=== PATIENT | male | born 1960 | race Caucasian/White ===

== ENCOUNTER 2017-09-25 09:56 | Emergency (ER) | payer BC ==
[2017-09-25 10:35] LABS: #Basophils 0.1 thou/uL (0.0-0.2); #Eosinphils 0.1 thou/uL (0.0-0.7); #Lymphocytes 1.5 thou/uL (1.20-3.40); #Monocytes 0.8 thou/uL (0.11-0.59); #Neutrophils 5.3 thou/uL (1.40-6.50); %Basophils 1.3 % (0.0-1.0); %Eosinophils 0.8 % (0.0-10.0); Hemoglobin 14.1 g/dL (14.0-18.0); Mean Corpuscular HGB CONC 35.5 g/dL (32.0-36.0); Mean Corpuscular Hemoglobin 32.6 pg (27.0-31.0); Mean Corpuscular Volume 91.8 fl (80.0-94.0); Mean Platelet Volume 6.4 fL (7.4-10.4); Platelet Count 286 thou/uL (130-400); RBC Distribution Width 10.1 % (11.5-14.5); Red Blood Cell (RBC) Count 4.34 mill/uL (4.70-6.10); White Blood Cell (WBC) Count 7.7 thou/uL (4.8-10.8)
[2017-09-25 10:47] LABS: ALT (SGPT) 18 U/L (8-55); AST (SGOT) 19 U/L (5-34); Albumin 3.9 g/dL (3.5-5.0); Alkaline Phosphatase 81 U/L (40-150); Anion Gap 14 mmol/L (10-20); BUN (Urea Nitrogen) 14 mg/dL (8.4-25.7); Bilirubin, Total 0.6 mg/dL (0.2-1.2); Calc. Creatinine Clearance 0 mL/min (70-130); Calcium 9.5 mg/dL (7.8-10.44); Carbon Dioxide 24 mmol/L (22-29); Chloride 103 mmol/L (98-107); Estimated GFR-MDRD 67; Globulin 3.4 g/dL (2.4-3.5); Glucose 139 mg/dL (70-105); Potassium 3.9 mmol/L (3.5-5.1); Protein, Total 7.3 g/dL (6.0-8.3); Sodium 137 mmol/L (136-145)
[2017-09-25 10:50] LABS: CKMB 1.4 ng/mL (0-6.6); Troponin I Less than 0.010 ng/mL (< 0.028)
--- NOTE | 2017-09-25 11:04 | RAD ---
PA AND LATERAL VIEWS CHEST: HISTORY: Cough. FINDINGS: Comparison is made with the exam of 09/06/12. The heart size is normal. The lungs are expanded without focal areas of consolidation, pneumothorax, or pleural effusions. Chronic changes are again seen. No acute osseous abnormalities are identifie d. IMPRESSION: No radiographic evidence of acute cardiopulmonary process. POS: [facility]
--- NOTE | 2017-09-25 12:00 | CT ---
CT PULMONARY ANGIOGRAM WITH IV CONTRAST AND 3D POSTPROCESSING: HISTORY: Cough and tachycardia. FINDINGS/: The pulmonary arterial vasculature is well opacified without filling defects to suggest pulmonary emb olism. The thoracic aorta is well opacified without aneurysm or dissection. No pleural or pericardi al effusions are seen. No pneumothoraces are identified. There are mild infiltrates in the lung bas es with peribronchial thickening and bronchial atelectasis in the lower lobes (left greater than righ t). There are degenerative changes in the spine. IMPRESSION: No evidence of PE POS: [facility]
== END 2017-09-25 12:50 | disposition home or self-care (01) ==
LOC: SCSER 09:56
DX: J18.9 Pneumonia, unspecified organism (principal); K21.9 Gastro-esophageal reflux disease without esophagitis; E11.9 Type 2 diabetes mellitus without complications; E78.5 Hyperlipidemia, unspecified; I10 Essential (primary) hypertension; Z79.899 Other long term (current) drug therapy
CPT/HCPCS: 71020; 71275; 80053; 82553; 84484; 85025; 85379; 93005

== ENCOUNTER 2018-09-08 18:21 | Emergency (ER) | payer BC ==
[2018-09-08] MEDS ORDERED: Ketorolac Tromethamine 30 MG/ML VIAL ONE (18:34)
[2018-09-08 18:48] LABS: #Basophils 0.1 thou/uL (0.0-0.2); #Eosinphils 0.1 thou/uL (0.0-0.7); #Lymphocytes 1.9 thou/uL (1.20-3.40); #Monocytes 0.8 thou/uL (0.11-0.59); #Neutrophils 7.8 thou/uL (1.40-6.50); %Basophils 0.8 % (0.0-1.0); %Lymphocytes 17.7 % (21.0-51.0); %Monocytes 7.2 % (0.0-10.0); %Neutrophils 73.3 % (42.0-75.0); Hemoglobin 16.4 g/dL (14.0-18.0); Mean Corpuscular HGB CONC 34.8 g/dL (32.0-36.0); Mean Corpuscular Hemoglobin 32.5 pg (27.0-31.0); Mean Corpuscular Volume 93.4 fL (78.0-98.0); Mean Platelet Volume 6.9 fL (7.4-10.4); Platelet Count 285 thou/uL (130-400); RBC Distribution Width 11.1 % (11.5-14.5); Red Blood Cell (RBC) Count 5.04 mill/uL (4.70-6.10); White Blood Cell (WBC) Count 10.6 thou/uL (4.8-10.8)
[2018-09-08] MEDS ORDERED: KETAMINE 100 MG/ML (5ML VIAL) ONE (18:57)
[2018-09-08 19:12] LABS: ALT (SGPT) 18 U/L (8-55); AST (SGOT) 17 U/L (5-34); Albumin 4.5 g/dL (3.5-5.0); Alkaline Phosphatase 90 U/L (40-150); Anion Gap 12 mmol/L (10-20); BUN (Urea Nitrogen) 21 mg/dL (8.4-25.7); Bilirubin, Total 0.5 mg/dL (0.2-1.2); Calc. Creatinine Clearance 0 mL/min (70-130); Calcium 9.6 mg/dL (7.8-10.44); Carbon Dioxide 26 mmol/L (22-29); Chloride 105 mmol/L (98-107); Estimated GFR-MDRD 58; Globulin 2.9 g/dL (2.4-3.5); Glucose 126 mg/dL (70-105); Lipase 68 U/L (8-78); Potassium 3.9 mmol/L (3.5-5.1); Protein, Total 7.4 g/dL (6.0-8.3); Sodium 139 mmol/L (136-145)
--- NOTE | 2018-09-08 20:03 | CT ---
CT ABDOMEN AND PELVIS WITHOUT IV CONTRAST: 09/08/18 Multiple axial tomograms obtained through the abdomen and pelvis without IV enhancement. INDICATIONS: Right abdominal pain and CVA tenderness. COMPARISON: CT abdomen and pelvis 04/29/15. FINDINGS: Liver, spleen, pancreas and adrenal glands are unremarkable. Mild right hydronephrosis. There is an obstructing 4 mm calculus in the proximal right ureter. There are numerous nonobstructing calculi in the upper collecting structures of both kidneys measuring in t he 2 to 3 mm range. There is bilateral perinephric stranding, more prominent on the right. Small bowel loops are normal caliber. Appendix is normal. Diverticulosis of the sigmoid and left colo n again noted. Aorta is normal caliber. IMPRESSION: 1. 4 mm obstructing calculus in the mid right ureter. 2. Numerous nonobstructing small calculi in the upper collecting structures of both kidneys. 3. Bilateral perinephric stranding probably more prominent on the right. POS: [facility]
[2018-09-08 20:10] LABS: Bilirubin Negative (Negative); Blood, Urine Large (Negative); Clarity TURBID (Clear); Leukocyte Small (Negative); Nitrite Negative (Negative); Protein, Urine (Dipstick) 30 mg/dL (Neg-Trace); Specific Gravity, Urine 1.017 (1.002-1.036)
[2018-09-08 20:11] LABS: Bacteria/HPF None Seen HPF (None Seen); Hyaline Casts/LPF 0-3 HYALINE CAST LPF (0-3 Hyaline); Pathc Cast-AUWi Flag 0.35 (0-2.49); RBC/HPF GREATER THAN 50-TNTC HPF (0-3); Squamous Epithelial 0-3 HPF (0-3)
[2018-09-08 20:13] LABS: Glucose, Urine (Dipstick) 100 mg/dL (Negative)
[2018-09-08] MEDS ORDERED: Ondansetron ODT 4 MG TAB ONE (20:28)
== END 2018-09-08 23:53 | disposition home or self-care (01) ==
LOC: ERS 18:21
DX: N13.2 Hydronephrosis with renal and ureteral calculous obstruction (principal); K21.9 Gastro-esophageal reflux disease without esophagitis; E78.5 Hyperlipidemia, unspecified; I10 Essential (primary) hypertension; E11.9 Type 2 diabetes mellitus without complications; Z79.899 Other long term (current) drug therapy
CPT/HCPCS: 36415; 74176; 80053; 81003; 81015; 83690; 85025; 96361; 96374; 96375; J1885; Q0162

== ENCOUNTER 2018-09-10 17:13 | Inpatient (IN) | payer BC ==
[2018-09-10] MEDS ORDERED: Ondansetron PF 4 MG/2 ML Vial ONE (17:54)
[2018-09-10] MEDS ORDERED: Morphine 4 MG/ML Carpuject ONE (17:54)
[2018-09-10 17:58] LABS: #Basophils 0.1 thou/uL (0.0-0.2); #Eosinphils 0.1 thou/uL (0.0-0.7); #Lymphocytes 1.5 thou/uL (1.20-3.40); #Monocytes 0.8 thou/uL (0.11-0.59); #Neutrophils 12.2 thou/uL (1.40-6.50); %Basophils 0.5 % (0.0-1.0); %Eosinophils 0.5 % (0.0-10.0); %Lymphocytes 10.5 % (21.0-51.0); %Monocytes 5.6 % (0.0-10.0); %Neutrophils 82.9 % (42.0-75.0); Hemoglobin 15.1 g/dL (14.0-18.0); Mean Corpuscular HGB CONC 35.5 g/dL (32.0-36.0); Mean Corpuscular Hemoglobin 31.4 pg (27.0-31.0); Mean Corpuscular Volume 88.7 fL (78.0-98.0); Mean Platelet Volume 7.8 fL (7.4-10.4); Platelet Count 203 thou/uL (130-400); RBC Distribution Width 10.3 % (11.5-14.5); Red Blood Cell (RBC) Count 4.79 mill/uL (4.70-6.10); White Blood Cell (WBC) Count 14.7 thou/uL (4.8-10.8)
[2018-09-10 18:07] LABS: ALT (SGPT) 15 U/L (8-55); AST (SGOT) 16 U/L (5-34); Albumin 4.1 g/dL (3.5-5.0); Alkaline Phosphatase 91 U/L (40-150); Anion Gap 13 mmol/L (10-20); BUN (Urea Nitrogen) 31 mg/dL (8.4-25.7); Bilirubin, Total 0.4 mg/dL (0.2-1.2); Calc. Creatinine Clearance 0 mL/min (70-130); Calcium 9.3 mg/dL (7.8-10.44); Carbon Dioxide 25 mmol/L (22-29); Estimated GFR-MDRD 37; Globulin 2.8 g/dL (2.4-3.5); Glucose 171 mg/dL (70-105); Potassium 4.6 mmol/L (3.5-5.1); Protein, Total 6.9 g/dL (6.0-8.3); Sodium 138 mmol/L (136-145)
[2018-09-10 18:14] LABS: Chloride 105 mmol/L (98-107)
[2018-09-10 18:16] LABS: Bilirubin Negative (Negative); Blood, Urine Large (Negative); Clarity Hazy (Clear); Glucose, Urine (Dipstick) 250 mg/dL (Negative); Leukocyte Negative (Negative); Nitrite Negative (Negative); Protein, Urine (Dipstick) Negative (Neg-Trace)
[2018-09-10 18:19] LABS: Bacteria/HPF Rare-Few HPF (None Seen); Squamous Epithelial None Seen HPF (0-3); WBC/HPF None Seen HPF (0-3)
[2018-09-10] MEDS ORDERED: Ketorolac Tromethamine 30 MG/ML VIAL ONE (18:22)
[2018-09-10] MEDS ORDERED: Fentanyl 100 MCG/2 ML VIAL ONE (18:22)
--- NOTE | 2018-09-10 18:28 | CT ---
CT ABDOMEN AND PELVIS WITHOUT CONTRAST: Technique: Multiple contiguous axial images were obtained through the abdomen and pelvis without IV e nhancement. Indications: Right flank and right lower quadrant pain. CT from 09-08-18 demonstrated a 4 mm calculus in the mid right ureter producing obstructive change. FINDINGS: Lung bases remain clear. Liver, spleen, and pancreas and adrenal glands remain unremarkable. There continues to be moderate right hydronephrosis. There is dilatation of the right ureter. The pre viously noted calculus in the right ureter has migrated more distally and now resides in the distal r ight ureter. There is right perinephric stranding. Nonobstructing calculi in the upper collecting structures of both kidneys again noted and unchanged i n appearance. Bowel loops and appendix remain unremarkable. There is diverticulosis which was described previously. No other interval change. IMPRESSION: 4 mm calculus noted on the recent CT now resides in the more distal right ureter. It continues to pro duce moderate obstructive change. No other interval change. POS: [facility]
[2018-09-10] MEDS ORDERED: Ondansetron PF 4 MG/2 ML Vial IVP PRN (20:14)
[2018-09-10] MEDS ORDERED: Acetaminophen 325 MG TAB PO PRN (20:14)
[2018-09-10] MEDS ORDERED: Ondansetron ODT 4 MG TAB SL PRN (20:14)
[2018-09-10 20:36] VITALS: BMI 26.2
[2018-09-10] MEDS: Sodium Chloride 0.9% 1,000 ML IV SCH (20:57)
[2018-09-10] MEDS ORDERED: Famotidine 20 MG TAB PO SCH ×2 (21:00→22:00)
[2018-09-10] MEDS ORDERED: Tamsulosin HCl 0.4 MG CAP PO SCH (21:30)
[2018-09-10] MEDS: traMADol HCl 50 MG TAB PO PRN (22:04)
[2018-09-10] MEDS: Heparin 5,000 UNITS/ML VIAL SC SCH (22:06)
--- NOTE | 2018-09-11 01:04 | HP ---
PRIMARY CARE PHYSICIAN: Dr. Daniel Alcantar. CHIEF COMPLAINT: Right-sided abdominal pain. HISTORY OF PRESENT ILLNESS: Mr. Momin is a pleasant 58-year-old male with past medical history of hypertension, hyperlipidemia, diabetes mellitus, kidney stones, GERD, status post gastric sleeve surgery in 2012, who had presented to [facility] as a direct admit from [facility] ER for a right ureteral stone, which measures 4 mm. The patient was recently seen in [facility] ER on Tuesday for similar symptoms. He was treated with IV Toradol, IV ketamine, and 1 L of normal saline. He underwent CT of abdomen, which found a 4-mm stone in his right mid ureter with hydroureter and hydronephrosis on the right. He was stabilized in the ER and later sent home with outpatient followup. He states over the weekend, his pain seemed to be improving. However, around 4:00 this afternoon, he states his pain was sharp, 8/10 pain in the right lower quadrant. He had taken himself to the [facility] ER. Repeat CT displayed a 4-mm stone in the distal ureter; however, his urinalysis showed no signs of infection. White count was slightly elevated at 14.7, and he remained afebrile. Lab work indicated acute kidney injury with a creatinine of 1.89, estimated GFR of 37. He was started on IV fluid of normal saline. He was transferred to the floor for further workup and management of symptoms. He was seen and examined with his daughter at bedside. He had denied any chest pain or shortness of breath. He did complain of [id number] right-sided abdominal pain in the right lower quadrant. He had denied any nausea, vomiting, or diarrhea. He had no further symptoms at that time. He had denied any flank pain. He reported passing a kidney stone about 2 weeks ago prior to these symptoms starting on Tuesday. PAST MEDICAL HISTORY: Hypertension, hyperlipidemia, diabetes mellitus type 2, GERD, and frequent kidney stones. PAST SURGICAL HISTORY: Gastric sleeve in 2012, left shoulder surgery for bone spur, carpal tunnel surgery bilaterally, left inguinal hernia repair, cervical spine fusion, tonsillectomy, and vasectomy. PSYCHIATRIC HISTORY: No previous psychiatric history noted. SOCIAL HISTORY: He states he drinks 1 to 2 drinks socially every week. He denies any drug use or tobacco use. KNOWN ALLERGIES: Morphine, penicillins, and adhesive. HOME MEDICATIONS: 1. Multivitamin p.o. b.i.d. 2. Tamsulosin 0.4 mg p.o. daily. 3. Omeprazole 20 mg p.o. daily. 4. Dextroamphetamine/amphetamine 20 mg p.o. b.i.d. 5. Cetirizine 10 mg p.o. daily. 6. Vitamin B complex one tablet p.o. daily. 7. Celebrex 200 mg p.o. b.i.d. 8. Zonisamide 50 mg two capsules p.o. t.i.d. REVIEW OF SYSTEMS: Positive for right lower quadrant pain, but denies all other review of systems unless noted in the HPI. PHYSICAL EXAMINATION: VITAL SIGNS: Blood pressure 148/92, pulse 91, respirations 18, temperature 97.7 degrees Fahrenheit, and O2 saturation 97% on room air. GENERAL: The patient is alert and oriented x3, sitting up at bedside, mild acute distress noted due to pain. HEENT: Head is atraumatic, normocephalic. Pupils are round and reactive to light. Extraocular muscles intact. Ears, nose, and throat exam normal. No drainage. Oropharynx clear without any erythema or exudates. Uvula midline. Tonsils are absent. Neck: Soft, supple. No tenderness, no JVD, no bruit noted. CARDIOVASCULAR: Positive S1 and S2. Regular rate and rhythm. No murmur noted. PULMONARY: Clear to auscultation bilaterally. No wheezes, no rhonchi. Chest expansion equal. ABDOMEN: Soft. Cmer-us-wluufgke tenderness on the right side; however, no rebound, no guarding. No Julien sign. No pain at McBurney's point. No obturator sign. GENITOURINARY: No CVA tenderness. No suprapubic tenderness. MUSCULOSKELETAL: No edema noted. No clubbing. Strength 5+ in bilateral upper and lower extremities. Pedal and radial pulses palpable. NEUROLOGIC: Cranial nerves 2 through 12 intact. No focal deficits noted. Speech and hearing intact and normal. Gait not tested. PSYCHIATRIC: Good mood and affect. No homicidal or suicidal ideation noted. SKIN: No rash. No lesions. No bruising noted. LABORATORY DATA: WBC 14.7, RBC 4.79, hemoglobin 15.1, platelets 203, and neutrophils 12.2. Sodium 138, potassium 4.6, creatinine 1.89, estimated GFR 37, glucose 171. AST 16, ALT 15, and alkaline phosphatase 91. Urinalysis showed 250 glucose, large blood, negative bilirubin, 11 to 20 rbc's, no wbc's, and no urine bacteria. DIAGNOSTIC IMAGING: CT of abdomen and pelvis without contrast on protocol displayed a 4-mm calculus noted on a recent CT that were in the more distal right ureter and continues to produce moderate obstructive changes. No interval change. ASSESSMENT AND PLAN: 1. Ureteral stone, continue on Flomax, give the patient a strainer to strain urine, monitor CBC and BMP. Continue tramadol 50 mg as needed. Continue on IV fluid with normal saline. 2. Acute kidney injury, continue on IV fluids, hold all nephrotoxic medications. Recheck BMP in a.m. 3. History of diabetes mellitus, Accu-Chek daily, place on mild insulin sliding scale. Further changes pending the patient's progress. 4. Hypertension. Start on IV hydralazine as needed for systolic blood pressure greater than 170. 5. Deep venous thrombosis prophylaxis with heparin subcu twice daily. 6. Gastrointestinal prophylaxis with Pepcid twice daily and Zofran as needed for nausea. 7. Code status, full code. Disposition and further medical management pending the patient's progress and clinical findings. The patient will be observed overnight and likely discharge tomorrow if he is doing well. If he is unable to pass the stone, further consult to Urology Services will be made for further management. Job ID: [id number]
[2018-09-11] MEDS ORDERED: Sodium Chloride 0.9% 1,000 ML IV SCH (05:02)
--- NOTE | 2018-09-11 05:08 | PDOC.EVN ---
Event Note - Event Note Event Note: Discussed with PA. Agrees with assessment and plan except: Add ROS: positive for Right sided abdominal pain otherwise all systems reviewed and are negative. Family history: reviewed and non-contributory to this visit.
[2018-09-11] MEDS: Sodium Chloride 0.9% 1,000 ML IV SCH ×3 (06:15→18:26)
[2018-09-11 07:19] LABS: #Eosinphils 0.1 thou/uL (0.0-0.7); #Lymphocytes 1.4 thou/uL (1.20-3.40); #Monocytes 0.8 thou/uL (0.11-0.59); #Neutrophils 8.9 thou/uL (1.40-6.50); %Basophils 0.3 % (0.0-1.0); %Eosinophils 0.5 % (0.0-10.0); %Lymphocytes 12.7 % (21.0-51.0); %Monocytes 7.3 % (0.0-10.0); %Neutrophils 79.2 % (42.0-75.0); Hemoglobin 13.5 g/dL (14.0-18.0); Mean Corpuscular HGB CONC 34.3 g/dL (32.0-36.0); Mean Corpuscular Hemoglobin 32.8 pg (27.0-31.0); Mean Corpuscular Volume 95.7 fL (78.0-98.0); Mean Platelet Volume 7.2 fL (7.4-10.4); Platelet Count 206 thou/uL (130-400); RBC Distribution Width 11.1 % (11.5-14.5); Red Blood Cell (RBC) Count 4.11 mill/uL (4.70-6.10); White Blood Cell (WBC) Count 11.3 thou/uL (4.8-10.8)
[2018-09-11 07:27] LABS: Anion Gap 8 mmol/L (10-20); BUN (Urea Nitrogen) 24 mg/dL (8.4-25.7); Calc. Creatinine Clearance 64 mL/min (70-130); Calcium 8.6 mg/dL (7.8-10.44); Carbon Dioxide 24 mmol/L (22-29); Chloride 109 mmol/L (98-107); Estimated GFR-MDRD 57; Glucose 110 mg/dL (70-105); Potassium 4.1 mmol/L (3.5-5.1); Sodium 137 mmol/L (136-145)
[2018-09-11] MEDS ORDERED: Cetirizine HCl 10 MG TAB PO SCH (09:00)
[2018-09-11] MEDS ORDERED: Non-Formulary Item 1 EACH (Celecoxib [Celebrex] 200 MG) PO SCH (09:00)
[2018-09-11] MEDS: Heparin 5,000 UNITS/ML VIAL SC SCH ×2 (09:13→20:55)
[2018-09-11] MEDS: traMADol HCl 50 MG TAB PO PRN (09:14)
[2018-09-11] MEDS: Multivit, Chewable SF 1 TAB PO SCH ×2 (09:14→21:32)
[2018-09-11] MEDS: Tamsulosin HCl 0.4 MG CAP PO SCH (09:15)
[2018-09-11] MEDS: Folic Acid/Vit B Comp W-C PO SCH (09:15)
[2018-09-11] MEDS: Loratadine 10 MG TAB PO SCH (09:15)
[2018-09-11] MEDS: Zonisamide 100 MG CAP PO SCH ×2 (09:15→13:02)
[2018-09-11] MEDS: Fentanyl 100 MCG/2 ML VIAL SLOW IVP PRN ×3 (15:17→21:33)
[2018-09-11] MEDS: Famotidine 20 MG TAB PO SCH (20:57)
[2018-09-11] MEDS: Zonisamide 25 MG CAP PO SCH (21:32)
--- NOTE | 2018-09-11 23:25 | PRG ---
DATE OF SERVICE: 09/11/2018 SUBJECTIVE: A 58-year-old male with recently diagnosed ureteral calculi, presented to the emergency room with worsening abdominal pain in the right lower quadrant. Two days ago, he was diagnosed with right ureteral calculus and was discharged home. His pain got worse for which he presented to the emergency room. His pain is still intermittent. No fever or chills reported. He denies any hematuria or urgency. PHYSICAL EXAMINATION: VITAL SIGNS: Temperature 98.4, pulse rate of 102, respiration 18, blood pressure of 144/83 with O2 saturation 96% on room air. GENERAL: A 58-year-old male in mild distress due to abdominal discomfort. NECK: Supple. No JVD. LUNGS: Clear to auscultation bilaterally. HEART: S1 and S2 present. Regular rate and rhythm. Tachycardic. ABDOMEN: Soft. Tenderness in the right lower quadrant. No rebound or guarding. NEUROLOGIC: Grossly nonfocal. LABORATORY DATA: Lab findings; creatinine has improved to 1.29 from 1.89. WBC down to 11.3 from 14.7. Urine culture negative. CT scan of the abdomen and pelvis by my review showed right ureteral distal calculus 4 mm. IMPRESSION: 1. Abdominal discomfort secondary to right ureteral calculus with moderate right hydronephrosis. 2. Acute kidney injury on chronic kidney disease stage 2, secondary to #1 and dehydration. 3. Systemic inflammatory response syndrome, suspected secondary to urinary tract infection. 4. Penicillin allergy. 5. Hypertension. 6. Hyperlipidemia. 7. Diabetic mellitus type 2. 8. Gastroesophageal reflux disease. 9. History of frequent renal calculi. 10. History of gastric sleeve. PLAN: Fentanyl will be added for pain control. We will continue IV fluids. We will avoid nonsteroidal anti-inflammatory drugs. We will continue Flomax. We will add Levaquin due to suspected UTI, although the cultures are negative. We will await final cultures. We will keep him n.p.o. past midnight for possible ureteral stent placement by Dr. Jon. I discussed the plan of care with Dr. Jon. Noemy mccabe. Plan of care was discussed with the patient in detail. He stated understanding. Job ID: [id number]
[2018-09-12] MEDS: Sodium Chloride 0.9% 1,000 ML IV SCH ×4 (00:51→22:28)
[2018-09-12] MEDS: Fentanyl 100 MCG/2 ML VIAL SLOW IVP PRN ×3 (04:37→20:50)
[2018-09-12] MEDS: Tamsulosin HCl 0.4 MG CAP PO SCH (08:01)
[2018-09-12] MEDS: Loratadine 10 MG TAB PO SCH (08:01)
[2018-09-12] MEDS: Multivit, Chewable SF 1 TAB PO SCH ×2 (08:01→20:00)
[2018-09-12] MEDS: Folic Acid/Vit B Comp W-C PO SCH (08:01)
[2018-09-12 09:31] LABS: #Basophils 0.1 thou/uL (0.0-0.2); #Eosinphils 0.2 thou/uL (0.0-0.7); #Lymphocytes 1.8 thou/uL (1.20-3.40); #Monocytes 0.7 thou/uL (0.11-0.59); #Neutrophils 8.2 thou/uL (1.40-6.50); %Basophils 0.6 % (0.0-1.0); %Eosinophils 1.5 % (0.0-10.0); %Lymphocytes 16.1 % (21.0-51.0); %Monocytes 6.2 % (0.0-10.0); %Neutrophils 75.5 % (42.0-75.0); Hemoglobin 14.4 g/dL (14.0-18.0); Mean Corpuscular HGB CONC 32.5 g/dL (32.0-36.0); Mean Corpuscular Volume 95.3 fL (78.0-98.0); Mean Platelet Volume 7.1 fL (7.4-10.4); Platelet Count 251 thou/uL (130-400); Red Blood Cell (RBC) Count 4.64 mill/uL (4.70-6.10); White Blood Cell (WBC) Count 10.9 thou/uL (4.8-10.8)
[2018-09-12 09:55] LABS: Anion Gap 11 mmol/L (10-20); BUN (Urea Nitrogen) 16 mg/dL (8.4-25.7); Calc. Creatinine Clearance 74 mL/min (70-130); Calcium 9.3 mg/dL (7.8-10.44); Carbon Dioxide 23 mmol/L (22-29); Chloride 107 mmol/L (98-107); Estimated GFR-MDRD 68; Glucose 119 mg/dL (70-105); Magnesium 1.6 mg/dL (1.6-2.6); Potassium 3.9 mmol/L (3.5-5.1); Sodium 137 mmol/L (136-145)
[2018-09-12] MEDS: Zonisamide 100 MG CAP PO SCH ×2 (09:55→13:00)
--- NOTE | 2018-09-12 13:27 | CON ---
DATE OF CONSULTATION: 09/12/2018 SERVICE: Urology. Consulting is Dr. Jermaine Macias. Consulted is Dr. Rich Jon. REASON FOR CONSULTATION: Ureteral stone with uncontrolled pain. HISTORY OF PRESENT ILLNESS: Mr. Momin is a 58-year-old white male, who I had previously seen back in 2014 for nephrolithiasis. He had previously had stones with ureteroscopies in the past and has had a [facility] workup demonstrating that his stone disease was caused by a very poor fluid intake and low citrate levels in his urine. In any case, he presented to the emergency room a few days ago with severe right-sided flank pain, at which time, he had a CT scan done, which demonstrated a 4 mm proximal right ureteral stone. He was discharged home on tramadol as he is allergic to morphine products and tamsulosin, but unfortunately, he returned to the ER the next day with severe uncontrolled pain. He was admitted to the hospital, where he is currently being managed with IV fentanyl and oral tramadol. He states his pain is not properly controlled without the IV pain medications, so I have been consulted for further assistance with the current stone. Repeat CT has been done, which shows that the stone now resides in the distal right ureter with moderate hydronephrosis. He denies any nausea, vomiting, fevers, or chills and does experience pain on the right, which is radiating down to the groin. ALLERGIES: 1. PENICILLIN. 2. MORPHINE. HOME MEDICATIONS: 1. Zonisamide. 2. Celebrex. 3. B complex. 4. Flomax. 5. Omeprazole. 6. Multivitamin. 7. Adderall. 8. Zyrtec. PAST MEDICAL HISTORY: 1. Type 2 diabetes. 2. Hypertension. 3. Nephrolithiasis. 4. GERD. 5. Dyslipidemia. 6. ADHD. 7. Seasonal allergies. 8. Diverticulosis. 9. Hemorrhoids. 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 PAST SURGICAL HISTORY: 1. Herniated disk repair in the cervical spine. 2. Carpal tunnel release. 3. Vasectomy. 4. Left inguinal hernia repair. 5. Left ureteroscopy and laser lithotripsy. 6. Shoulder surgery. 7. Condyloma removal on the rectum. FAMILY HISTORY: Significant for cardiovascular disease and MIs. No history of nephrolithiasis. SOCIAL HISTORY: The patient is a former smoker, but quit more than 10 years ago. He denies alcohol abuse or illicit drug use. He is currently . REVIEW OF SYSTEMS: A 12-point review of systems is unremarkable other than the right-sided flank pain. He again denies nausea, vomiting, fevers or chills, difficulty with urination, chest pain, shortness of breath, or lower extremity edema. Remainder of 12-point review of systems was reviewed and otherwise negative. PHYSICAL EXAMINATION: VITAL SIGNS: Temperature 98.1, pulse 91, respirations 18, blood pressure 147/90, and saturation 97% on room air. GENERAL: No apparent distress, communicating and alert, well-nourished, well-developed, answering questions appropriately. HEENT: Normocephalic and atraumatic. Sclerae nonicteric. Pupils are symmetric and round. Wears glasses. Normal dentition. Trachea midline. Moist mucous membranes. CARDIOVASCULAR: Regular rate and rhythm. Normal S1 and S2. No obvious murmurs. Symmetric pulses. CHEST: No increased work of breathing. Clear anteriorly. No wheezes. Normal shaped chest. Nonlabored breathing. ABDOMEN: Soft and nondistended. Mild tenderness on the right side and toward the right lower quadrant. Very mild right CVA tenderness. No left CVA tenderness. No rebound, guarding, or peritoneal signs. Positive bowel sounds. : Deferred at this time. EXTREMITIES: No clubbing, cyanosis, or edema. MUSCULOSKELETAL: No joint deformities or joint erythema noted. Full range of motion. NEUROLOGIC: Cranial nerves 2 through 12 grossly intact. No focal or sensory motor deficits identified. SKIN: Warm and dry. No rashes or lesions. Good turgor. PSYCHIATRIC: Alert and oriented x3. Appropriate mood and affect. LABORATORY DATA: On laboratory evaluation, full set of labs in the [facility] system, which I have reviewed. Of note, the patient's white count is currently 10.9 with a hemoglobin of 14.4. Creatinine has reduced from 1.89 down to 1.11 with IV hydration. Urinalysis demonstrates large blood, 11 to 20 red cells, no bacteria, nitrite negative, and leukocyte esterase negative. Urine culture is negative at 12 hours. IMAGING: CT stone protocol from September 10 demonstrates moderate hydronephrosis secondary to a 4 mm distal right calculus with bilateral punctate nephrolithiasis within both kidneys. No other significant findings. I have reviewed these images myself. ASSESSMENT: A 58-year-old white male with right ureteral stone with hydronephrosis with uncontrolled pain, requiring IV fentanyl. He has not been able to keep his pain controlled with oral pain medications alone, and as such, medical expulsive therapy is not warranted. I recommended either ureteral stent placement or probably better would be just definitive stone removal with ureteroscopy and laser lithotripsy. I explained that if in some instances the stone cannot be reached, if there are significant swelling, or inability to remove the stone, a stent would be placed, and we could come back at a later date to do the surgery, but I do anticipate that the stone could be removed in a single surgical setting. Would likely need to leave the stent in postop. He has been through the surgery before and is well aware of the risks, which I have discussed again with him, which include, but are not limited to bleeding, infection, ureteral injuries, ureteral stricture disease, incomplete stone removal, bladder injury or kidney damage, urethral strictures or urethral trauma, need for further procedures. He understands these risks and wishes to proceed forward. PLAN: 1. N.P.O. 2. IV pain medication. 3. To OR today for ureteroscopy and laser lithotripsy on the right with basket extraction and stent placement. 4. We will leave the stent with the string, so he can remove it himself. 5. IV antibiotics on-call to the OR. 6. SCDs on-call to the OR. Job ID: [id number]
[2018-09-12] MEDS: Famotidine 20 MG TAB PO SCH (19:47)
--- NOTE | 2018-09-12 19:51 | PDOC.PN ---
- Subjective Encounter Start Date: 09/12/18 Encounter Start Time: 12:30 Patient seen and examined for JOHANN/UTI/Sepsis. No new complaints. No overnight events - Objective Resuscitation Status - Order Detail: 09/10/18 20:46 Resuscitation Status Routine Co-Sign Provider: Resuscitation Status: FULL: Full Resuscitation MAR Reviewed: Yes Vital Signs & Weight: Vital Signs (12 hours) Temp Pulse Resp BP Pulse Ox 09/12/18 08:00 98.1 F 91 18 147/90 H 97 Weight Weight 158 lb I&O: 09/11/18 09/12/18 09/13/18 06:59 06:59 06:59 Intake Total 1600 360 Balance 1600 360 Result Diagrams: 09/12/18 09:14 09/12/18 09:14 Phys Exam - Physical Examination Constitutional: NAD Respiratory: no wheezing, no rhonchi Cardiovascular: RRR, no rub Gastrointestinal: soft, non-tender, positive bowel sounds Musculoskeletal: no edema Neurological: moves all 4 limbs Psychiatric: A&O x 3 Dx/Plan - Plan DVT proph w/SCDs 1. Abdominal discomfort secondary to right ureteral calculus with moderate right hydronephrosis. 2. Acute kidney injury on chronic kidney disease stage 2, secondary to #1 and dehydration. improving 3. Sepsis due to UTI. 4. Penicillin allergy. 5. Hypertension. 6. Hyperlipidemia. 7. Diabetic mellitus type 2. 8. Gastroesophageal reflux disease. 9. History of frequent renal calculi. 10. History of gastric sleeve. PLAN: Cont Levaquin Ureteroscopy today Cont IVF IV Fentanyl for pain control Cont other meds as below Review of Systems - Review of Systems Respiratory: negative: Cough, Dry, Shortness of Breath, Hemoptysis, SOB with Excertion, Pleuritic Pain, Sputum, Wheezing Cardiovascular: negative: chest pain, palpitations, orthopnea, paroxysmal nocturnal dyspnea, edema, light headedness, other - Medications/Allergies Allergies/Adverse Reactions: Allergies Allergy/AdvReac Type Severity Reaction Status Date / Time adhesive Allergy Verified 05/01/15 13:08 morphine Allergy Verified 05/01/15 13:08 penicillin Allergy Verified 05/01/15 13:08 Medications: Current Medications Famotidine (Pepcid) 20 mg PO QPM RUI Last Admin: 09/11/18 20:57 Dose: 20 mg Fentanyl (Sublimaze) 25 mcg SLOW IVP Q3H PRN PRN Reason: Severe Pain (7-10) Last Admin: 09/12/18 14:55 Dose: 25 mcg Sodium Chloride (Normal Saline 0.9%) 1,000 mls @ 150 mls/hr IV .Q6H40M [facility] Last Admin: 09/12/18 17:00 Dose: 1,000 mls Levofloxacin 500 mg/ Device 100 mls @ 100 mls/hr IVPB Q24HR [facility] Last Admin: 09/12/18 00:30 Dose: 100 mls Loratadine (Claritin) 10 mg PO DAILY [facility] Last Admin: 09/12/18 08:01 Dose: 10 mg Multivitamins (Multivit, Chewable Sf) 1 tab PO BID [facility] Last Admin: 09/12/18 08:01 Dose: 1 tab Sodium Chloride (Flush - Normal Saline) 10 ml IVF Q12HR [facility] Last Admin: 09/12/18 08:08 Dose: Not Given Sodium Chloride (Flush - Normal Saline) 10 ml IVF PRN PRN PRN Reason: Saline Flush Tamsulosin HCl (Flomax) 0.4 mg PO DAILY [facility] Last Admin: 09/12/18 08:01 Dose: 0.4 mg Tramadol HCl (Ultram) 50 mg PO Q4H PRN PRN Reason: Mild-Moderate Pain (1-5) Last Admin: 09/11/18 09:14 Dose: 50 mg Vitamin B Complex/Vit C/Folic Acid (Nephro-Rolo Tablet) 1 tab PO DAILY [facility] Last Admin: 09/12/18 08:01 Dose: 1 tab Zonisamide (Zonegran) 100 mg PO 0800,1200 [facility] Last Admin: 09/12/18 13:00 Dose: Not Given Zonisamide (Zonisamide) 50 mg PO HS [facility] Last Admin: 09/11/18 21:32 Dose: 50 mg
[2018-09-12] MEDS: Zonisamide 25 MG CAP PO SCH (19:56)
[2018-09-13] MEDS: Fentanyl 100 MCG/2 ML VIAL SLOW IVP PRN ×3 (03:03→11:56)
[2018-09-13] MEDS: Sodium Chloride 0.9% 1,000 ML IV SCH ×2 (05:18→11:54)
[2018-09-13 07:16] VITALS: TEMP 98.2
[2018-09-13] MEDS: Loratadine 10 MG TAB PO SCH (08:03)
[2018-09-13] MEDS: Tamsulosin HCl 0.4 MG CAP PO SCH (08:03)
[2018-09-13] MEDS: Folic Acid/Vit B Comp W-C PO SCH (08:03)
[2018-09-13] MEDS: Multivit, Chewable SF 1 TAB PO SCH (08:03)
[2018-09-13] MEDS: Zonisamide 100 MG CAP PO SCH ×2 (08:49→11:54)
[2018-09-13] MEDS ORDERED: Fentanyl 100 MCG/2 ML VIAL ONE (12:59)
[2018-09-13] MEDS ORDERED: Iothalamate Meglumine 60% 50 ML VIAL FS ONE (13:01)
[2018-09-13] MEDS ORDERED: Ondansetron HCl/PF 4 MG/2 ML Vial IVP PRN (14:22)
[2018-09-13] MEDS ORDERED: Promethazine HCl 25 MG/ML VIAL SLOW IVP PRN (14:22)
[2018-09-13] MEDS ORDERED: Promethazine HCl 25 MG/ML VIAL IM PRN (14:22)
[2018-09-13 15:17] VITALS: BP 136/83
--- NOTE | 2018-09-13 16:06 | PDOC.PN ---
- Subjective Encounter Start Date: 09/13/18 Encounter Start Time: 10:00 Patient seen and examined for SIRS/UTI. Pain controlled with Fentanyl. No new complaints. No overnight events - Objective Resuscitation Status - Order Detail: 09/10/18 20:46 Resuscitation Status Routine Co-Sign Provider: Resuscitation Status: FULL: Full Resuscitation Vital Signs & Weight: Vital Signs (12 hours) Temp Pulse Resp BP BP Pulse Ox 09/13/18 14:50 98.2 F 97 18 136/83 95 09/13/18 08:00 97 09/13/18 07:15 98.2 F 87 20 132/88 97 Weight Weight 158 lb I&O: 09/12/18 09/13/18 09/14/18 06:59 06:59 06:59 Intake Total 360 Output Total 425 Balance -65 Result Diagrams: 09/12/18 09:14 09/12/18 09:14 Phys Exam - Physical Examination Constitutional: NAD Respiratory: no wheezing, no rhonchi Cardiovascular: RRR, no rub Gastrointestinal: soft, non-tender, positive bowel sounds Musculoskeletal: no edema Neurological: non-focal Dx/Plan - Plan DVT proph w/SCDs 1. Abdominal discomfort secondary to right ureteral calculus with moderate right hydronephrosis. 2. Acute kidney injury on chronic kidney disease stage 2, secondary to #1 and dehydration. improving 3. Sepsis due to UTI. 4. Penicillin allergy. 5. Hypertension. 6. Hyperlipidemia. 7. Diabetic mellitus type 2. 8. Gastroesophageal reflux disease. 9. History of frequent renal calculi. 10. History of gastric sleeve. PLAN: Cont IVF/Atbx Lithotripsy today IV Fentanyl for pain control Cont other meds as below Review of Systems - Review of Systems Cardiovascular: negative: chest pain, palpitations, orthopnea, paroxysmal nocturnal dyspnea, edema, light headedness, other Gastrointestinal: negative: Nausea, Vomiting, Abdominal Pain, Diarrhea, Constipation, Melena, Hematochezia, Other - Medications/Allergies Allergies/Adverse Reactions: Allergies Allergy/AdvReac Type Severity Reaction Status Date / Time adhesive Allergy Verified 05/01/15 13:08 morphine Allergy Verified 05/01/15 13:08 penicillin Allergy Verified 05/01/15 13:08 Medications: Current Medications Famotidine (Pepcid) 20 mg PO QPM RUI Last Admin: 09/12/18 19:47 Dose: 20 mg Fentanyl (Sublimaze) 25 mcg SLOW IVP Q3H PRN PRN Reason: Severe Pain (7-10) Last Admin: 09/13/18 11:56 Dose: 25 mcg Fentanyl (Pacu-Sublimaze) 50 mcg SLOW IVP Q10MIN PRN PRN Reason: Moderate to Severe Pain (6-10) Stop: 09/13/18 17:22 Sodium Chloride (Normal Saline 0.9%) 1,000 mls @ 150 mls/hr IV .Q6H40M [facility] Last Admin: 09/13/18 11:54 Dose: 1,000 mls Levofloxacin 500 mg/ Device 100 mls @ 100 mls/hr IVPB Q24HR [facility] Last Admin: 09/12/18 23:44 Dose: 100 mls Loratadine (Claritin) 10 mg PO DAILY [facility] Last Admin: 09/13/18 08:03 Dose: 10 mg Multivitamins (Multivit, Chewable Sf) 1 tab PO BID [facility] Last Admin: 09/13/18 08:03 Dose: 1 tab Ondansetron HCl (Pacu-Zofran) 4 mg IVP ONE PRN PRN Reason: Nausea/Vomiting Stop: 09/13/18 17:22 Promethazine HCl (Pacu-Phenergan) 6.25 mg SLOW IVP ONE PRN PRN Reason: Nausea/Vomiting Stop: 09/13/18 17:22 Promethazine HCl (Pacu-Phenergan) 6.25 mg IM ONE PRN PRN Reason: Nausea/Vomiting Stop: 09/13/18 17:22 Sodium Chloride (Flush - Normal Saline) 10 ml IVF Q12HR [facility] Last Admin: 09/13/18 08:06 Dose: Not Given Sodium Chloride (Flush - Normal Saline) 10 ml IVF PRN PRN PRN Reason: Saline Flush Tamsulosin HCl (Flomax) 0.4 mg PO DAILY [facility] Last Admin: 09/13/18 08:03 Dose: 0.4 mg Tramadol HCl (Ultram) 50 mg PO Q4H PRN PRN Reason: Mild-Moderate Pain (1-5) Last Admin: 09/11/18 09:14 Dose: 50 mg Vitamin B Complex/Vit C/Folic Acid (Nephro-Rolo Tablet) 1 tab PO DAILY [facility] Last Admin: 09/13/18 08:03 Dose: 1 tab Zonisamide (Zonegran) 100 mg PO 0800,1200 [facility] Last Admin: 09/13/18 11:54 Dose: 100 mg Zonisamide (Zonisamide) 50 mg PO HS RUI Last Admin: 09/12/18 19:56 Dose: 50 mg
--- NOTE | 2018-09-13 18:41 | OP ---
DATE OF PROCEDURE: 09/13/2018 SERVICE: Urology. PREOPERATIVE DIAGNOSIS: Right ureteral stone. POSTOPERATIVE DIAGNOSIS: Right ureteral stone. PROCEDURES PERFORMED: Right ureteroscopy, laser lithotripsy, basket extraction of stone, and placement of a 6 x 26 double-J stent with string attached. INDICATION FOR PROCEDURE: Mr. Momin is a 58-year-old white male, who I have seen previously for ureteral stones and had performed a left-sided ureteroscopy in the past. He presented to the ER several days ago with right-sided flank pain and was diagnosed with a 4-mm proximal right ureteral stone. He was sent home, but had intractable pain, so he came back and was admitted with a repeat CT demonstrating a stone now in the distal ureter. Due to very poor pain control and requirement of IV pain medication, we have elected to treat his stone now as opposed to allowing him to pass the stone on his own. Risks and benefits of the procedure have been discussed, and he has agreed to proceed forward. DESCRIPTION OF PROCEDURE: After identification of arm band and verification of consent, the patient was brought back to the operating room, where he underwent general anesthesia with an LMA. He was placed in the dorsal lithotomy position and prepped and draped in the usual sterile fashion. After appropriate time-out, a lubricated 22-Tajik rigid cystoscope was passed per urethra into the bladder, and attention was turned to the right ureteral orifice, which was cannulated with a 0.035 Sensor wire up to the level of the renal pelvis. The cystoscope was used to empty the bladder and removed, and the Sensor wire was affixed to the drapes as a safety wire. A semi-rigid ureteroscope was then brought in through the urethra, alongside the Sensor wire into the distal ureter and used to cannulate up to the level of the stone, which was seen as a spiky yellow stone indicative of likely calcium oxalate dihydrate. A 365 micron laser fiber was used to fragment the stone into smaller pieces. There was some difficulty in treating the stone in its current location, so a 2.4-Tajik Smitha basket was used to bring the stone down to a more suitable location. Unfortunately, the basket became damaged during this process and had to be discarded. After complete lithotripsy, a different basket 1.9-Tajik Zero Tip Nitinol basket was used to remove the remaining fragments, and these were sent for stone analysis. Repeat ureteroscopy did not demonstrate any additional fragments within the ureter. Satisfied, the ureteroscope was withdrawn and the cystoscope was back-loaded over the Sensor wire back into the bladder. A 6 x 26 double-J stent with a string attached was advanced over the Sensor wire up to the level of the renal pelvis. The wire was then removed leaving a good curl in the renal pelvis and a good curl in the bladder. The bladder was then emptied, and the cystoscope was removed. The patient's string was attached to his penis with an OpSite. He was then awakened, taken to PACU for recovery in stable condition. COMPLICATIONS: None. ESTIMATED BLOOD LOSS: Minimal. RETAINED TUBES AND DRAINS: A 6 x 26 double-J stent on the right. SPECIMENS: Stone for stone analysis. DISPOSITION: The patient will be discharged to home and follow up with me in approximately 3 weeks. He will be instructed to remove his stent on Tuesday by gently pulling the string. Job ID: [id number]
--- NOTE | 2018-09-14 10:23 | DIS ---
DATE OF ADMISSION: 09/10/2018 DATE OF DISCHARGE: 09/13/2018 DISCHARGE MEDICATIONS: Same as admission medication with addition of Levaquin for next 4 days. BRIEF HOSPITAL COURSE: The patient is a 58-year-old male with hypertension, hyperlipidemia, diabetes mellitus type 2, and frequent renal calculi, presented to the hospital on September 10 2018, with significant flank pain. Please note that he was seen in the emergency room 2 days prior to the admission and was discharged home. His pain got worse, for which he presented to the emergency room. Please refer to the history and physical for further details. The patient was admitted to the hospital with a diagnosis of abdominal discomfort secondary to right ureteral calculus with moderate right hydronephrosis. He was also found to have acute kidney injury on CKD stage 2 secondary to dehydration. Please note that he was unable to tolerate large volume of fluid due to his gastric surgery in the past. He was also found to have sepsis secondary to UTI. Urine cultures, however, did not grow anything probably due to ureteral obstruction. He was evaluated by Urology, Dr. Jon. He underwent right ureteroscopy, laser lithotripsy, basket extraction of the stone with placement of stent on the day of discharge. He will continue Levaquin for next 4 days. He has been cleared by consultants for discharge. FINAL DIAGNOSES: 1. Abdominal discomfort secondary to right ureteral calculus with moderate right hydronephrosis, requiring IV narcotics. 2. Acute kidney injury on chronic kidney disease stage 2 secondary to dehydration. 3. Sepsis due to urinary tract infection. 4. Penicillin allergy. 5. Hypertension. 6. Hyperlipidemia. 7. Diabetes mellitus, type 2. 8. Gastroesophageal reflux disease. 9. History of frequent renal calculi. 10. History of gastric sleeve. PLAN: Plan of care was discussed with the patient in detail. He stated understanding. SIGNIFICANT LABORATORY DATA: Creatinine 1.89 on admission and 1.11 at discharge. WBC count 14.7 on admission and 10.9 at discharge. 82.9% neutrophils on admission and 75.5% at discharge. The patient was seen on the day of discharge. Job ID: [id number]
== END 2018-09-13 17:52 | disposition home or self-care (01) | DRG 854 ==
LOC: SCSER 17:13 → OBSVTOIN 20:10 → T4-B 20:10
PROVIDERS: ADMIT Internal Medicine; ATTEND Internal Medicine
PROC: 0TC68ZZ Extirpation of Matter from Right Ureter, Via Natural or Artificial Opening Endoscopic (ICD-10-PCS; principal; 2018-09-13)
PROC: 0T768DZ Dilation of Right Ureter with Intraluminal Device, Via Natural or Artificial Opening Endoscopic (ICD-10-PCS; 2018-09-13)
DX: A41.9 Sepsis, unspecified organism (principal); N13.6 Pyonephrosis; N17.9 Acute kidney failure, unspecified; E86.0 Dehydration; I12.9 Hypertensive chronic kidney disease with stage 1 through stage 4 chronic kidney disease, or unspecified chronic kidney disease; N18.2 Chronic kidney disease, stage 2 (mild); E11.22 Type 2 diabetes mellitus with diabetic chronic kidney disease; E78.5 Hyperlipidemia, unspecified; K21.9 Gastro-esophageal reflux disease without esophagitis; Z98.84 Bariatric surgery status; Z88.5 Allergy status to narcotic agent; Z88.0 Allergy status to penicillin
CPT/HCPCS: 36415; 74176; 76000; 80048; 80053; 81003; 81015; 82365; 83690; 83735; 85025; 87086; 88300; 96361; 96374; 96375; J1644; J1885; J1956; J2270; J2405; J3010; Q0162; Q9961

== ENCOUNTER 2019-10-21 06:08 | Observation (INO) | payer BC ==
[2019-10-21] MEDS ORDERED: Fentanyl 100 MCG/2 ML VIAL ONE ×2 (06:35→08:02)
[2019-10-21] MEDS ORDERED: Ondansetron PF 4 MG/2 ML Vial ONE ×2 (06:36→08:43)
[2019-10-21] MEDS ORDERED: Ketorolac Tromethamine 30 MG/ML VIAL ONE (06:36)
[2019-10-21 06:52] LABS: #Basophils 0.1 thou/uL (0.0-0.2); #Eosinphils 0.2 thou/uL (0.0-0.7); #Lymphocytes 1.5 thou/uL (1.20-3.40); #Monocytes 0.9 thou/uL (0.11-0.59); #Neutrophils 8.2 thou/uL (1.40-6.50); %Eosinophils 1.9 % (0.0-10.0); %Lymphocytes 13.7 % (21.0-51.0); %Monocytes 8.3 % (0.0-10.0); Hemoglobin 16.3 g/dL (14.0-18.0); Mean Corpuscular HGB CONC 33.5 g/dL (32.0-36.0); Mean Corpuscular Hemoglobin 32.2 pg (27.0-31.0); Mean Platelet Volume 6.8 fL (7.4-10.4); Platelet Count 243 thou/uL (130-400); RBC Distribution Width 11.3 % (11.5-14.5); Red Blood Cell (RBC) Count 5.07 mill/uL (4.70-6.10); White Blood Cell (WBC) Count 10.9 thou/uL (4.8-10.8)
[2019-10-21 07:12] LABS: ALT (SGPT) 24 U/L (8-55); AST (SGOT) 20 U/L (5-34); Albumin 4.3 g/dL (3.5-5.0); Alkaline Phosphatase 96 U/L (40-110); Anion Gap 12 mmol/L (10-20); BUN (Urea Nitrogen) 24 mg/dL (8.4-25.7); Bilirubin, Total 0.9 mg/dL (0.2-1.2); Calc. Creatinine Clearance 0 mL/min (70-130); Calcium 8.9 mg/dL (7.8-10.44); Carbon Dioxide 24 mmol/L (22-29); Chloride 103 mmol/L (98-107); Estimated GFR-MDRD 41; Globulin 2.3 g/dL (2.4-3.5); Glucose 140 mg/dL (70-105); Lipase 63 U/L (8-78); Potassium 4.1 mmol/L (3.5-5.1); Protein, Total 6.6 g/dL (6.0-8.3); Sodium 135 mmol/L (136-145)
--- NOTE | 2019-10-21 07:38 | CT ---
CT ABDOMEN AND PELVIS WITHOUT CONTRAST: HISTORY: Left flank and back pain with nausea. COMPARISON: 09/10/2018 TECHNIQUE: Multiple contiguous axial images were obtained in a CT of the abdomen and pelvis without contrast. Sa gittal and coronal reformats were performed. FINDINGS: There is a 6 mm calcification in the distal left ureter with mild to moderate left hydronephrosis. Ot her nonobstructing calcifications are seen in both kidneys, measuring up to 3 mm in size. No right si ded hydronephrosis is seen. The liver, gallbladder, adrenal glands, spleen and pancreas are unremarkable, although evaluation is limited without IV contrast. Stranding changes are seen surrounding the kidney. No free air or free fluid is seen in the abdomen o r pelvis. Scattered diverticula are seen in the colon. The small bowel and appendix are unremarkable. No abdominal or pelvic lymphadenopathy is seen. Atherosclerotic calcifications are seen in the aorta . There is a small, fat-containing right inguinal hernia. The visualized thorax is unremarkable . Degenerative changes are seen in the spine. IMPRESSION: 1. Left distal ureteral calcification with left sided hydronephrosis. 2. Nonobstructing bilateral renal calculi. POS: C
[2019-10-21 09:24] LABS: Bilirubin Negative (Negative); Blood, Urine 2+ (Negative); Clarity Clear (Clear); Glucose, Urine (Dipstick) Normal (Negative); Leukocyte Negative Leu/uL (Negative); Nitrite Negative (Negative); Protein, Urine (Dipstick) Negative (Neg-Trace); RBC/HPF 21-50 HPF (0-3); Squamous Epithelial None Seen HPF (0-3)
[2019-10-21 09:25] LABS: Bacteria/HPF 1+ HPF (None Seen)
[2019-10-21] MEDS ORDERED: diphenhydrAMINE 50 MG/ML VIAL IVP PRN (10:08)
[2019-10-21] MEDS ORDERED: Zolpidem Tartrate 5 MG TAB PO PRN (10:08)
[2019-10-21] MEDS ORDERED: Acetaminophen 325 MG TAB PO PRN (12:19)
[2019-10-21] MEDS ORDERED: Fentanyl 100 MCG/2 ML VIAL SLOW IVP PRN (12:19)
[2019-10-21] MEDS: Ketorolac Tromethamine 30 MG/ML VIAL IVP SCH ×3 (12:59→20:48)
[2019-10-21] MEDS ORDERED: Ondansetron PF 4 MG/2 ML Vial IVP PRN (13:51)
[2019-10-21 14:21] VITALS: BMI 27.4
[2019-10-21] MEDS: Sodium Chloride 0.9% 1,000 ML IV SCH (15:07)
[2019-10-21] MEDS: HYDROcodone/Acetaminophen 5/325 mg Tablet PO PRN ×2 (15:07→20:56)
[2019-10-21] MEDS ORDERED: Tamsulosin HCl 0.4 MG CAP PO PRN (15:21)
[2019-10-21] MEDS: Fentanyl 100 MCG/2 ML VIAL SLOW IVP PRN ×4 (16:12→22:39)
--- NOTE | 2019-10-21 16:29 | HP ---
CHIEF COMPLAINT: Left flank pain. HISTORY OF PRESENT ILLNESS: This is a 59-year-old male with history of kidney stones, having undergone ureteroscopy twice in the past, most recently, August 2018 and having passed several stones in addition to the surgical intervention. He developed acute onset left-sided flank pain yesterday morning and was trying to manage this with Flomax and fluids at home. However, the pain acutely worsened early today and he was seen in the emergency room. He was stabilized there and worked up with a CT scan showing a large distal left ureteral stone. Admission was requested by the emergency room. In speaking with him this afternoon, he has continued to have left-sided flank pain with intermittent nausea as well as urgency and feeling of incomplete emptying. He denies fevers, dysuria, chest pains, or shortness of breath. REVIEW OF SYSTEMS: Ten-point review of systems performed, positive for headaches and neck pain. PAST MEDICAL HISTORY: Includes a history of diabetes that he no longer has after undergoing gastric sleeve; hyperlipidemia; hypertension, also controlled after surgery; GERD; and arthritis. PAST SURGICAL HISTORY: Gastric sleeve in 2012, left shoulder surgery, left hernia repair, carpal tunnel, tonsillectomy, vasectomy, and ureteroscopy with laser. SOCIAL HISTORY: . No illicit drug use. No substance abuse problems. ALLERGIES: INCLUDE KETAMINE, MORPHINE, AND PENICILLIN. CURRENT MEDICATIONS: 1. Tamsulosin. 2. Omeprazole. 3. Zonisamide. 4. Adderall. 5. Cetirizine. FAMILY HISTORY: Reviewed, pertinent for recurrent stones in several family members. PHYSICAL EXAMINATION: GENERAL: No acute distress, resting comfortably in bed, conversant. HEENT: Eyes; normal movement. Sclerae are nonicteric. LUNGS: Unlabored breathing. Symmetric chest expansion. HEART: Regular rate and rhythm. ABDOMEN: Soft, nontender, and nondistended. No suprapubic tenderness. No flank tenderness. EXTREMITIES: Without clubbing, cyanosis, or edema. SKIN: Warm and dry. PSYCHIATRIC: Normal mood and affect. NEUROLOGIC: Alert and oriented x3. LABORATORY DATA: Reviewed. White count 10.9. Creatinine 1.72, which is up from his baseline. Urinalysis; negative leukocyte esterase and nitrite. IMAGING DATA: I personally reviewed his CT scan, which shows several small stones in both kidneys with [id number] left hydronephrosis down to the level of a large stone in the middle of the pelvis. The report indicates a 6-mm stone, however, I measured it as at least 9 mm. ASSESSMENT AND PLAN: Obstructing left ureteral stone with hydronephrosis, acute kidney injury with elevated creatinine. Admit to observation for IV fluids, pain control. Repeat creatinine in the morning. Collect and strain all urine. The patient, his , and I discussed his situation and have decided to monitor his progress overnight. If he is able to pass the stone overnight or if he is not having discomfort and would like to try to pass it on his own at home, he may discharge home tomorrow. Ureteroscopy also remains a possibility. We will decide on this first thing tomorrow morning. Greater than 85 minutes were spent in the patient's care. Job ID: [id number]
[2019-10-21] MEDS: Zonisamide 25 MG CAP PO SCH (20:41)
[2019-10-21] MEDS: Docusate 100 MG CAP PO SCH (20:43)
[2019-10-21] MEDS ORDERED: ADDERALL PO SCH (21:00)
[2019-10-21] MEDS: Multivit, Chewable SF 1 TAB PO SCH (22:42)
[2019-10-22] MEDS: Fentanyl 100 MCG/2 ML VIAL SLOW IVP PRN ×7 (00:37→13:09)
[2019-10-22] MEDS: Ketorolac Tromethamine 30 MG/ML VIAL IVP SCH ×5 (00:40→23:36)
[2019-10-22] MEDS: Sodium Chloride 0.9% 1,000 ML IV SCH ×3 (00:45→20:36)
[2019-10-22 05:18] LABS: #Eosinphils 0.2 thou/uL (0.0-0.7); #Lymphocytes 1.5 thou/uL (1.20-3.40); #Monocytes 0.8 thou/uL (0.11-0.59); #Neutrophils 5.6 thou/uL (1.40-6.50); %Basophils 0.4 % (0.0-1.0); %Eosinophils 2.4 % (0.0-10.0); %Lymphocytes 18.1 % (21.0-51.0); %Monocytes 9.9 % (0.0-10.0); %Neutrophils 69.2 % (42.0-75.0); Hemoglobin 14.8 g/dL (14.0-18.0); Mean Corpuscular Volume 97.1 fL (78.0-98.0); Mean Platelet Volume 6.8 fL (7.4-10.4); Platelet Count 206 thou/uL (130-400); RBC Distribution Width 11.3 % (11.5-14.5); Red Blood Cell (RBC) Count 4.61 mill/uL (4.70-6.10); White Blood Cell (WBC) Count 8.1 thou/uL (4.8-10.8)
[2019-10-22 05:40] LABS: Anion Gap 9 mmol/L (10-20); BUN (Urea Nitrogen) 21 mg/dL (8.4-25.7); Calc. Creatinine Clearance 50 mL/min (70-130); Calcium 8.1 mg/dL (7.8-10.44); Carbon Dioxide 25 mmol/L (22-29); Chloride 108 mmol/L (98-107); Estimated GFR-MDRD 41; Glucose 112 mg/dL (70-105); Sodium 138 mmol/L (136-145)
[2019-10-22] MEDS: Zonisamide 100 MG CAP PO SCH ×2 (07:51→13:00)
[2019-10-22] MEDS: Oseltamivir 75 MG CAP PO SCH (08:48)
[2019-10-22] MEDS: Docusate 100 MG CAP PO SCH ×2 (08:48→20:36)
[2019-10-22] MEDS: Multivit, Chewable SF 1 TAB PO SCH ×2 (08:48→20:36)
[2019-10-22] MEDS: Loratadine 10 MG TAB PO SCH (08:48)
[2019-10-22] MEDS: Stress 600 With Zinc 1 TAB PO SCH (08:48)
[2019-10-22] MEDS: Tamsulosin HCl 0.4 MG CAP PO SCH (08:48)
[2019-10-22] MEDS ORDERED: Lidocaine 1% PF 5 ML VIAL ONE (09:42)
[2019-10-22] MEDS ORDERED: diphenhydrAMINE 50 MG/ML VIAL ONE (09:42)
[2019-10-22] MEDS ORDERED: PHENYLEPHRINE-NS 100 MCG/ML 10 ML SYRINGE ONE (09:42)
[2019-10-22] MEDS ORDERED: Ketorolac Tromethamine 30 MG/ML VIAL ONE (09:42)
[2019-10-22] MEDS ORDERED: PROPOFOL 200 MG/20 ML VIAL ONE (09:42)
[2019-10-22] MEDS ORDERED: Dexamethasone 20 MG/5 ML VIAL ONE (09:42)
[2019-10-22] MEDS ORDERED: Ondansetron PF 4 MG/2 ML Vial ONE (09:42)
--- NOTE | 2019-10-22 11:04 | PRG ---
DATE OF SERVICE: 10/22/2019 CHIEF COMPLAINT: Left flank pain. SUBJECTIVE: No acute events overnight. The patient continues to have left flank pain up to 4-5/10 when the pain medication wears off, but it is well controlled with IV medications. He denies fevers, nausea, dysuria, chest pain, difficulty breathing. Ten point review of systems negative, except as mentioned above. OBJECTIVE: VITAL SIGNS: Afebrile. Vitals stable. Good urine output. GENERAL: No acute distress. Conversant. LUNGS: Unlabored breathing. Symmetric chest expansion. HEART: Regular rate and rhythm. ABDOMEN: Soft, nontender, and nondistended. GENITOURINARY: No flank tenderness. No suprapubic tenderness. SKIN: Warm and dry. EXTREMITIES: Without cyanosis or edema. NEUROLOGICAL: Alert and oriented x3. LABORATORY STUDIES: White count 8.1, down from 10.9. Creatinine 1.72, unchanged from yesterday. IMAGING: I again reviewed his CT scan showing a large distal left ureteral stone with hydronephrosis. ASSESSMENT AND PLAN: Left ureteral stone with hydronephrosis and acute kidney injury. The patient has not passed a stone overnight and so we discussed his options again at this point, including observation, expulsive therapy, surgical intervention. He has asked that we proceed with surgical intervention to remove the stone. I discussed the ureteroscopy procedure in detail including the risk of bleeding, infection, pain, inability to access or clear the stone, need for a second procedure, ureteral injury, or ureteral stricture formation. He expressed understanding of these and wishes to proceed. Job ID: [id number]
[2019-10-22] MEDS ORDERED: Fentanyl 100 MCG/2 ML VIAL ONE ×2 (15:32→16:40)
[2019-10-22] MEDS ORDERED: Levofloxacin 500 mg/D5W 100 ml Premix Bag ONE (16:19)
[2019-10-22] MEDS ORDERED: Iothalamate Meglumine 60% 50 ML VIAL FS ONE (16:29)
[2019-10-22] MEDS ORDERED: Ondansetron HCl/PF 4 MG/2 ML Vial IVP PRN (17:49)
[2019-10-22] MEDS ORDERED: Meperidine HCl/PF 25 MG/ML VIAL SLOW IVP PRN (17:49)
[2019-10-22] MEDS ORDERED: Promethazine HCl 25 MG/ML VIAL IM PRN (17:49)
[2019-10-22] MEDS ORDERED: Promethazine HCl 25 MG/ML VIAL SLOW IVP PRN (17:49)
--- NOTE | 2019-10-22 18:56 | RAD ---
KUB: History: Stent placement. FINDINGS: These are c-arm films which show a stent which appears to be in satisfactory position within the left ureter. IMPRESSION: Placement of left ureteral stent. POS: [place]
[2019-10-22] MEDS: Zonisamide 25 MG CAP PO SCH (20:38)
--- NOTE | 2019-10-22 23:57 | OP ---
DATE OF PROCEDURE: 10/22/2019 PREOPERATIVE DIAGNOSIS: Left ureteral stone. POSTOPERATIVE DIAGNOSIS: Left ureteral stone. PROCEDURE PERFORMED: Left ureteroscopy with laser lithotripsy, basket extraction of stone fragments, retrograde pyelogram, 6 x 26 double-J ureteral stent placement. ANESTHESIA: General. COMPLICATIONS: None. BLOOD LOSS: None. SPECIMEN: Left ureteral stone fragments. DESCRIPTION OF PROCEDURE: After informed consent, the patient was taken to the operating room, transferred to the table on his own power. Anesthesia was established. A time-out was performed showing the correct patient, site, and procedure. Preoperative antibiotics were administered. He was prepped and draped in the lithotomy position. I began by advancing the semi-rigid ureteroscope through the urethra into the bladder. The left ureteral orifice was cannulated with a wire, which was negotiated up to the level of the renal pelvis under fluoroscopic guidance. The scope was then withdrawn and reinserted alongside the wire into the distal ureter where the stone was quickly encountered. The 365 micron laser fiber was utilized to fragment the stone into several small pieces. The 1.9-cm Nitinol basket was used to retrieve all stone fragments, which were passed off as specimen. The scope was then passed into the proximal ureter, noting no further stone fragments. A retrograde pyelogram was performed, showing good filling of the renal pelvis with no filling defects or extravasation. The scope was withdrawn, leaving the wire in place. A 6 x 26 double-J ureteral stent was placed over the wire with a curl in the kidney and curl in the bladder under fluoroscopic guidance. Completion images were taken. The bladder was drained. The patient was then awoken from anesthesia, transferred back to his hospital bed, and taken to PACU in stable condition, where he will return to the floor upon recovery. Due to the late time of the procedure, he will remain inpatient overnight. Job ID: [id number]
[2019-10-23] MEDS: Sodium Chloride 0.9% 1,000 ML IV SCH (03:36)
[2019-10-23] MEDS: Ketorolac Tromethamine 30 MG/ML VIAL IVP SCH (06:12)
[2019-10-23 07:10] VITALS: BP 132/78; TEMP 98.2
[2019-10-23] MEDS: Tamsulosin HCl 0.4 MG CAP PO SCH (08:16)
[2019-10-23] MEDS: Zonisamide 100 MG CAP PO SCH (08:17)
[2019-10-23] MEDS: Oseltamivir 75 MG CAP PO SCH (08:17)
[2019-10-23] MEDS: Stress 600 With Zinc 1 TAB PO SCH ×2 (08:17→08:19)
[2019-10-23] MEDS: Multivit, Chewable SF 1 TAB PO SCH (08:17)
[2019-10-23] MEDS: Docusate 100 MG CAP PO SCH (08:17)
[2019-10-23] MEDS: Loratadine 10 MG TAB PO SCH (08:17)
--- NOTE | 2019-10-23 12:00 | DIS ---
DATE OF ADMISSION: 10/21/2019 DATE OF DISCHARGE: 10/23/2019 ADMISSION DIAGNOSIS: Left ureteral stone. DISCHARGE DIAGNOSES: Left ureteral stone, hydronephrosis, acute kidney injury. CONSULT: Urology consultation in the emergency department. PROCEDURES: Left ureteroscopy with laser, basket extraction, stent, retrograde on October 22, 2019. HOSPITAL COURSE: A 59-year-old male, who presented to the emergency department with acute onset left-sided flank pain. He was diagnosed with an obstructing ureteral stone. He was managed with IV fluids and pain medication overnight; however, was unable to pass the stone, continued to require pain medications, so the decision to proceed with surgery was made. He was taken later that day on October 22 for ureteroscopy with removal of the stone and stent placement. There were no surgical complications. Overnight, he required no pain medication and the following morning was afebrile, tolerating oral medications, and having no discomfort. He was deemed stable for discharge home at that point. DISCHARGE MEDICATIONS: Include; 1. Bactrim. 2. Oxybutynin. 3. Tramadol. 4. Tamsulosin. 5. Ibuprofen. FOLLOWUP: Follow up in 1 week for cystoscopy and stent removal. DISCHARGE DISPOSITION: Home. CONDITION: Stable. Job ID: [id number]
== END 2019-10-23 10:45 | disposition home or self-care (01) ==
LOC: ERS 06:08 → SURG B 10:09
PROVIDERS: ADMIT Urology; ATTEND Urology
PROC: 0TF78ZZ Fragmentation in Left Ureter, Via Natural or Artificial Opening Endoscopic (ICD-10-PCS; principal; 2019-10-22)
PROC: 0T778DZ Dilation of Left Ureter with Intraluminal Device, Via Natural or Artificial Opening Endoscopic (ICD-10-PCS; 2019-10-22)
DX: N13.2 Hydronephrosis with renal and ureteral calculous obstruction (principal); N17.9 Acute kidney failure, unspecified; E11.9 Type 2 diabetes mellitus without complications; E78.5 Hyperlipidemia, unspecified; I10 Essential (primary) hypertension; K21.9 Gastro-esophageal reflux disease without esophagitis; M19.90 Unspecified osteoarthritis, unspecified site; Z79.899 Other long term (current) drug therapy; Z88.0 Allergy status to penicillin; Z88.1 Allergy status to other antibiotic agents; Z88.5 Allergy status to narcotic agent; Z91.048 Other nonmedicinal substance allergy status; Z98.1 Arthrodesis status; Z98.84 Bariatric surgery status
CPT/HCPCS: 36415; 74018; 74176; 76000; 80048; 80053; 81003; 81015; 82365; 83690; 85025; 87086; 88300; 93005; 96361; 96374; 96375; 96376; C1769; G0378; J1100; J1200; J1885; J1956; J2001; J2405; J2704; J3010

== ENCOUNTER 2024-03-23 10:46 | Outpatient (CLI) | payer BC | END 2024-03-23 10:47 | disposition home or self-care (01) | LOC: BICULT 10:46 | PROVIDERS: ATTEND Urology | DX: N20.0 Calculus of kidney (principal) | CPT/HCPCS: 76770 ==